=== PATIENT | male | born 1950 | race Caucasian/White ===

== ENCOUNTER 2023-05-13 10:18 | Emergency (ER) | payer OTHER ==
[2023-05-13 11:34] LABS: BASOPHILS ABSOLUTE AUTO 0.03 K/uL (0.00-0.10); BASOPHILS PERCENT AUTO 0.4 % (0.1-1.3); EOSINOPHILS ABSOLUTE AUTO 0.17 K/uL (0.00-0.40); EOSINOPHILS PERCENT AUTO 2.4 % (0.0-5.4); HEMOGLOBIN 16.2 g/dL (12.9-16.9); IMMATURE GRAN PERCENT AUTO 0.3 % (0.0-0.7); LYMPHOCYTES ABSOLUTE AUTO 1.23 K/uL (0.8-3.3); LYMPHOCYTES PERCENT AUTO 17.6 % (11.4-47.7); MEAN CORPUSCULAR HEMOGLOBIN 29.9 pg (31.6-35.5); MEAN CORPUSCULAR HGB CONC 35.2 g/dL (31.6-35.5); MEAN CORPUSCULAR VOLUME 84.9 fL (81.4-99.0); MONOCYTES PERCENT AUTO 5.7 % (3.3-12.6); NEUTROPHILS ABSOLUTE AUTO 5.15 K/uL (1.0-7.6); NEUTROPHILS PERCENT AUTO 73.6 % (40.0-78.1); PLATELET COUNT,PLT 153 K/uL (130-375); RED BLOOD CELL COUNT 5.42 M/uL (4.14-5.76)
[2023-05-13 11:35] LABS: IMMATURE GRAN ABSOLUTE AUTO 0.02 K/uL (0.00-0.23)
[2023-05-13 11:49] LABS: CALCIUM 8.3 mg/dL (8.5-10.1); CREATININE 1.6 mg/dL (0.8-1.3); EST CRCL DRUG DOSING (CG) 45.81 mL/min; POTASSIUM,K 4.2 mmol/L (3.6-5.2)
[2023-05-13 12:11] LABS: ANION GAP 12.2 mmol/L (5.0-14.0)
== END 2023-05-13 12:35 | disposition home or self-care (01) ==
LOC: JP.ED 10:18
DX: A05.9 Bacterial foodborne intoxication, unspecified (principal); I10 Essential (primary) hypertension
CPT/HCPCS: 36415; 80048; 85025; 99284